=== PATIENT | female | born 1930 | race Caucasian/White ===

== ENCOUNTER 2017-02-18 10:19 | Outpatient (CLI) | payer MEDICARE, BC | END 2017-02-18 10:20 | disposition home or self-care (01) | DX: M85.88 Other specified disorders of bone density and structure, other site (principal) ==

== ENCOUNTER 2017-03-30 10:06 | Outpatient (CLI) | payer MEDICARE, BC | END 2017-03-30 10:07 | disposition critical access hospital (66) | LOC: EMS 10:06 | PROVIDERS: ATTEND Surgery | DX: R55 Syncope and collapse (principal) | CPT/HCPCS: A0425; A0427 ==

== ENCOUNTER 2017-03-30 10:25 | Emergency (ER) | payer MEDICARE, BC ==
[2017-03-30] MEDS ORDERED: LIDOCAINE PATCH 5% TOP ONE (10:48)
[2017-03-30] MEDS: LIDOCAINE PATCH 5% TOP STA (10:55)
--- NOTE | 2017-03-30 10:59 | ED Physician Documentation ---
History of Present Illness - Stated complaint Stated Complaint: SOA - Chief complaint Chief Complaint: Neuro - Additonal information Additional information: hx from pt 86 female to ER for near syncope while sitting at [employer] she did not eat this AM and thinks that is contributing has had mm tension in her neck - but no CP dyspnea etc no recent illness - no fever cough NVD urinary sx this has happened to her before Review of Systems Constitutional: denies: Fever, Chills Ears: denies: Ear pain Throat: denies: Sore throat Cardiac: denies: Chest pain / pressure, Palpitations Respiratory: denies: Dyspnea, Cough GI: denies: Abdominal Pain, Nausea, Vomiting Musculoskeletal: reports: Neck pain (MM right side trap region) Neurologic: denies: Headache Immunocompromised: denies: Immunocompromised PD PAST MEDICAL HISTORY - Present Medications Home Medications: Ambulatory Orders Medication Instructions Recorded Confirmed Lisinopril [Lisinopril] 5 mg PO DAILY 03/30/17 03/30/17 Ubidecarenone/Vitamin E Mixed 1 cap PO DAILY 03/30/17 03/30/17 [Ilz27-Slm E 200 mg-20 Unit Sfg] - Allergies Allergies/Adverse Reactions: Allergies Allergy/AdvReac Type Severity Reaction Status Date / Time aspirin Allergy Unknown Verified 03/30/17 10:43 atenolol Allergy Unknown Verified 03/30/17 10:43 cetirizine Allergy Unknown Verified 03/30/17 10:43 egg Allergy Unknown Verified 03/30/17 10:43 ginkgo biloba Allergy Unknown Verified 03/30/17 10:43 hydrochlorothiazide Allergy Unknown Verified 03/30/17 10:43 levothyroxine sodium Allergy Unknown Verified 03/30/17 10:43 [From Levothroid] losartan Allergy Unknown Verified 03/30/17 10:43 niacin Allergy Unknown Verified 03/30/17 10:43 Penicillins Allergy Unknown Verified 03/30/17 10:43 Cyrszsb-Ulc-Ydi Reductase Allergy Unknown Verified 03/30/17 10:43 Inhibitor Results - Vitals Vitals: Vital Signs - 24 hr 03/30/17 10:30 Temperature 36.4 C L Heart Rate 82 Respiratory 14 Rate Blood Pressure 158/66 H O2 Saturation 98 Oxygen O2 Source Room air - EKG (time done) 1046 Rate: Rate (enter#) (82) Rhythm: NSR [place]: Normal Intervals: Normal MT QRS: Normal Ischemia: Normal ST segments - Labs Labs: Laboratory Tests 03/30/17 03/30/17 03/30/17 11:25 11:25 11:25 WBC 10.7 RBC 3.92 L Hgb 11.6 L Hct 34.0 L MCV 86.8 MCH 29.6 MCHC 34.1 RDW 13.7 Plt Count 256 MPV 7.4 L Neut # 8.0 H Lymph # 1.4 L [place] # 1.1 H Eos # 0.2 Baso # 0.1 Absolute Nucleated RBC 0.00 Nucleated RBCs 0.0 Sodium 133 L Potassium 4.2 Chloride 99 L Carbon Dioxide 25 Anion Gap 9.0 BUN 20 Creatinine 1.1 H Estimated GFR (MDRD) 47 L Glucose 113 H Calcium 9.1 Troponin I < 0.04 Departure - Departure Disposition: 01 Home, Self Care Clinical Impression: Near syncope Condition: Good Instructions: ED Near Syncope Unkn Follow-Up: Mac Cisse DO [Primary Care Provider] - Comments: Your labs were fine except for mild anemia Your EKG and heart monitor were fine I suspect you felt faint at [facility] because you did not eat I think it is safe for you to go home. Please eat a god lunch and rest when you get home Please follow up with your PMD about your anemia Also you blood pressure was high today - please follow up with your PMD about that too
[2017-03-30 11:30] LABS: BASOPHILS # (AUTO) 0.1 10^3/uL (0.0-0.1); BASOPHILS % (AUTO) 0.6 %; EOSINOPHILS # (AUTO) 0.2 10^3/uL (0.0-0.7); EOSINOPHILS % (AUTO) 1.7 %; HGB - HEMOGLOBIN 11.6 g/dL (12.0-16.0); LYMPHOCYTES # (AUTO) 1.4 10^3/uL (1.5-3.5); LYMPHOCYTES % (AUTO) 13.3 %; MEAN CORPUSCULAR HEMOGLOBIN 29.6 pg (27.0-31.0); MEAN CORPUSCULAR HGB CONC 34.1 g/dL (32.0-36.0); MEAN CORPUSCULAR VOLUME 86.8 fL (81.0-99.0); MEAN PLATELET VOLUME 7.4 fL (7.9-10.8); MONOCYTES # (AUTO) 1.1 10^3/uL (0.0-1.0); MONOCYTES % (AUTO) 10.2 %; NEUTROPHILS % (AUTO) 74.2 %; RED BLOOD COUNT 3.92 10^6/uL (4.20-5.40); RED CELL DISTRIBUTION WIDTH 13.7 % (12.0-15.0); UNCORRECTED WHITE BLOOD COUNT 10.7 x10^3/uL; WHITE BLOOD COUNT 10.7 x10^3/uL (4.8-10.8)
[2017-03-30 11:43] LABS: CALCIUM 9.1 mg/dL (8.5-10.3); CREATININE 1.1 mg/dL (0.4-1.0); POTASSIUM 4.2 mmol/L (3.5-5.0)
[2017-03-30 12:22] VITALS: BP 127/59
== END 2017-03-30 12:25 | disposition home or self-care (01) ==
LOC: EDUNIT# → ED 10:25
DX: R55 Syncope and collapse (principal)
CPT/HCPCS: 36415; 80048; 84484; 85025; 93005; 93010; 99283; 99284

== ENCOUNTER 2017-12-28 10:45 | Emergency (ER) | payer MEDICARE, BC ==
[2017-12-28 11:23] LABS: BASOPHILS # (AUTO) 0.1 10^3/uL (0.0-0.1); BASOPHILS % (AUTO) 1.1 %; EOSINOPHILS # (AUTO) 0.4 10^3/uL (0.0-0.7); EOSINOPHILS % (AUTO) 5.1 %; HGB - HEMOGLOBIN 12.8 g/dL (12.0-16.0); LYMPHOCYTES # (AUTO) 2.6 10^3/uL (1.5-3.5); LYMPHOCYTES % (AUTO) 29.8 %; MEAN CORPUSCULAR HEMOGLOBIN 29.1 pg (27.0-31.0); MEAN CORPUSCULAR VOLUME 88.1 fL (81.0-99.0); MEAN PLATELET VOLUME 7.4 fL (7.9-10.8); MONOCYTES # (AUTO) 0.7 10^3/uL (0.0-1.0); MONOCYTES % (AUTO) 7.9 %; NEUTROPHILS # (AUTO) 4.9 10^3/uL (1.5-6.6); NEUTROPHILS % (AUTO) 56.1 %; PLT - PLATELET COUNT 310 10^3/uL (130-450); RED CELL DISTRIBUTION WIDTH 13.6 % (12.0-15.0); WHITE BLOOD COUNT 8.8 x10^3/uL (4.8-10.8)
[2017-12-28 11:31] LABS: ALBUMIN 4.2 g/dL (3.2-5.5); ALBUMIN/GLOBULIN RATIO 0.9 (1.0-2.2); BILIRUBIN,TOTAL 0.6 mg/dL (0.2-1.0); CALCIUM 9.8 mg/dL (8.5-10.3); CREATININE 1.3 mg/dL (0.4-1.0); TOTAL PROTEIN 8.7 g/dL (6.7-8.2)
[2017-12-28] MEDS ORDERED: SODIUM CHLORIDE 0.9% 1,000 ML IV ONE (11:49)
--- NOTE | 2017-12-28 11:51 | ED Physician Documentation ---
History of Present Illness - Stated complaint Stated Complaint: WEAKNESS - Chief complaint Chief Complaint: Cardiac - History obtained from History obtained from: Patient, Family - History of Present Illness Timing: Today - Additonal information Additional information: 87-year-old female was in her regular state of health when she went to [facility] this morning. She was not ill yesterday and today she feels that her legs are weak and she has near syncope. She has a history of aortic stenosis and she thinks that she is not well hydrated. Review of Systems Constitutional: denies: Fever, Chills Eyes: denies: Decreased vision Ears: denies: Ear pain Nose: denies: Congestion Throat: denies: Sore throat Cardiac: reports: Palpitations. denies: Chest pain / pressure Respiratory: reports: Dyspnea, Cough GI: denies: Abdominal Pain, Nausea, Vomiting : denies: Dysuria, Frequency Skin: denies: Rash Musculoskeletal: denies: Neck pain, Back pain, Extremity pain Neurologic: reports: Generalized weakness. denies: Focal weakness, Numbness PD PAST MEDICAL HISTORY - Past Medical History Past Medical History: Yes Cardiovascular: Hypertension Other Past Medical History: Aortic Stenosis - Past Surgical History General: Gastric surgery HEENT: Tonsil/Adenoidectomy - Present Medications Home Medications: Ambulatory Orders Medication Instructions Recorded Confirmed Lisinopril [Lisinopril] 5 mg PO DAILY 03/30/17 03/30/17 Ubidecarenone/Vitamin E Mixed 1 cap PO DAILY 03/30/17 03/30/17 [Wuj01-Eca E 200 mg-20 Unit Sfg] Ciprofloxacin HCl [Cipro] 500 mg PO BID #14 tablet 12/28/17 Flaxseed/Evening Prim/Bilberry 12/28/17 [[employer]-Precip Softgel] - Allergies Allergies/Adverse Reactions: Allergies Allergy/AdvReac Type Severity Reaction Status Date / Time aspirin Allergy Unknown Verified 03/30/17 10:43 atenolol Allergy Unknown Verified 03/30/17 10:43 cetirizine Allergy Unknown Verified 03/30/17 10:43 diphenhydramine Allergy Unknown Verified 12/28/17 10:54 [From Benadryl] egg Allergy Unknown Verified 03/30/17 10:43 ginkgo biloba Allergy Unknown Verified 03/30/17 10:43 hydrochlorothiazide Allergy Unknown Verified 03/30/17 10:43 levothyroxine sodium Allergy Unknown Verified 03/30/17 10:43 [From Levothroid] losartan Allergy Unknown Verified 03/30/17 10:43 niacin Allergy Unknown Verified 03/30/17 10:43 Penicillins Allergy Unknown Verified 03/30/17 10:43 Mjomuaf-Bpz-Itb Reductase Allergy Unknown Verified 03/30/17 10:43 Inhibitor - Social History Does the pt smoke?: No Smoking Status: Never smoker Does the pt drink ETOH?: No Does the pt have substance abuse?: No - Immunizations Immunizations are current?: Yes Immunizations: TDAP >10years/unknown - POLST Patient has POLST: No PD ED PE NORMAL - Vitals Vital signs reviewed: Yes (hypertensive ) - General General: Alert and oriented X 3, No acute distress, Well developed/nourished - HEENT HEENT: Atraumatic, PERRL, EOMI - Neck Neck: Supple, no meningeal sign, No bony TTP - Cardiac Cardiac: RRR, Other (2/6 holosystolic murmer at LSB ) - Respiratory Respiratory: No respiratory distress, Clear bilaterally - Abdomen Abdomen: Soft, Non tender - Back Back: No CVA TTP, No spinal TTP - Derm Derm: Normal color, No rash - Extremities Extremities: No deformity, No edema - Neuro Neuro: Alert and oriented X 3, No motor deficit, No sensory deficit, Normal speech Eye Opening: Spontaneous Motor: Obeys Commands Verbal: Oriented GCS Score: 15 - Psych Psych: Normal mood, Normal affect Results - Vitals Vitals: Vital Signs - 24 hr 12/28/17 12/28/17 12/28/17 10:49 10:50 11:00 Temperature 36.2 C L Heart Rate 90 70 69 Respiratory 16 16 Rate Blood Pressure 193/79 H 193/79 H 153/71 H O2 Saturation 99 99 12/28/17 12:43 Temperature Heart Rate 72 Respiratory 18 Rate Blood Pressure 148/61 H O2 Saturation 99 Oxygen O2 Source Room air - EKG (time done) 1057 Rate: Rate (enter#) (86) Rhythm: NSR, LAE QRS: LVH Compare to prior EKG: Changed from prior EKG (03-30-17 LVH has developed ) Computer interpretation: Agree with computer - Labs Labs: Laboratory Tests 12/28/17 12/28/17 12/28/17 11:00 11:00 11:00 WBC 8.8 RBC 4.40 Hgb 12.8 Hct 38.8 MCV 88.1 MCH 29.1 MCHC 33.0 RDW 13.6 Plt Count 310 MPV 7.4 L Neut # 4.9 Lymph # 2.6 [place] # 0.7 Eos # 0.4 Baso # 0.1 Absolute Nucleated RBC 0.00 Nucleated RBC % 0.0 Sodium 132 L Potassium 4.1 Chloride 97 L Carbon Dioxide 23 Anion Gap 12.0 BUN 21 H Creatinine 1.3 H Estimated GFR (MDRD) 39 L Glucose 100 Calcium 9.8 Total Bilirubin 0.6 AST 21 ALT 12 Alkaline Phosphatase 70 Troponin I < 0.04 Total Protein 8.7 H Albumin 4.2 Globulin 4.5 H Albumin/Globulin Ratio 0.9 L Lipase 32 Urine Color Urine Clarity Urine pH Ur Specific [place] Urine Protein Urine Glucose (UA) Urine Ketones Urine Occult Blood Urine Nitrite Urine Bilirubin Urine Urobilinogen Ur Leukocyte Esterase Urine RBC Urine WBC Ur Squamous Epith Cells Urine Bacteria Ur Microscopic Review Urine Culture Comments 12/28/17 12:28 WBC RBC Hgb Hct MCV MCH MCHC RDW Plt Count MPV Neut # Lymph # [place] # Eos # Baso # Absolute Nucleated RBC Nucleated RBC % Sodium Potassium Chloride Carbon Dioxide Anion Gap BUN Creatinine Estimated GFR (MDRD) Glucose Calcium Total Bilirubin AST ALT Alkaline Phosphatase Troponin I Total Protein Albumin Globulin Albumin/Globulin Ratio Lipase Urine Color YELLOW Urine Clarity CLEAR Urine pH 6.0 Ur Specific [place] 1.010 Urine Protein NEGATIVE Urine Glucose (UA) NEGATIVE Urine Ketones NEGATIVE Urine Occult Blood TRACE-INTA Urine Nitrite NEGATIVE Urine Bilirubin NEGATIVE Urine Urobilinogen 0.2 (NORMAL) Ur Leukocyte Esterase TRACE H Urine RBC 0-5 Urine WBC 6-10 H Ur Squamous Epith Cells MOD Squamous H Urine Bacteria Rare Ur Microscopic Review INDICATED Urine Culture Comments NOT INDICATED - Rads (name of study) 2 view chest Radiology: Prelim report reviewed (Impression: No convincing acute cardiopulmonary abnormality. Bilateral interstitial abnormality suggesting chronic lung disease. Mitral annular calcification.), EMP read indepedently, See rad report Procedures - IVC sono (time) 1145 Bedside IVC sono: IVC measures (cm) (1.02), IVC collapsed c insp (cm) (complete) , Dehydration PD MEDICAL DECISION MAKING - ED course Complexity details: reviewed results, re-evaluated patient, considered differential, d/w patient, d/w family ED course: 87-year-old female attending [facility] this morning feeling not well is found to be mildly dehydrated and she does have urinary tract infection. She is administered a liter of saline and a gram of Rocephin intravenously. Departure - Departure Disposition: 01 Home, Self Care Clinical Impression: Dehydration Urinary tract infection Qualifiers: Urinary tract infection type: acute cystitis Hematuria presence: without hematuria Qualified Code(s): N30.00 - Acute cystitis without hematuria Condition: Stable Instructions: ED UTI Cystitis Female, ED Dehydration Follow-Up: Mac Cisse DO [Primary Care Provider] - Prescriptions: Ciprofloxacin HCl [Cipro] 500 mg PO BID #14 tablet
--- NOTE | 2017-12-28 11:52 | XRAY Report ---
EXAM: CHEST RADIOGRAPHY EXAM DATE: 12/28/2017 11:32 AM. CLINICAL HISTORY: Palpitations, sob. COMPARISON: 07/15/2009. TECHNIQUE: 2 views. FINDINGS: Lungs/Pleura: Bilateral interstitial abnormality suggesting chronic lung disease. This is overall sim ilar to prior. No convincing focal pulmonary opacity. There is mitral annular calcification. No convi ncing pleural effusion or pneumothorax. Mediastinum: Heart size is normal. Mildly tortuous aorta. Other: None. IMPRESSION: No convincing acute cardiopulmonary abnormality. Bilateral interstitial abnormality sugge sting chronic lung disease. Mitral annular calcification. [facility] Referring Provider Line: [phone] SITE ID: [id number]
[2017-12-28 12:45] LABS: BILIRUBIN,URINE NEGATIVE (NEGATIVE); GLUCOSE, URINE (UA) NEGATIVE (NEGATIVE); KETONES,URINE (UA) NEGATIVE (NEGATIVE); LEUKOCYTE ESTERASE, URINE TRACE (NEGATIVE); NITRITE,URINE NEGATIVE (NEGATIVE); OCCULT BLOOD,URINE TRACE-INTA (NEGATIVE); PROTEIN,URINE NEGATIVE (NEGATIVE); UROBILINOGEN,URINE 0.2 (NORMAL) E.U./dL (NORMAL)
[2017-12-28 12:46] LABS: CLARITY,URINE CLEAR (CLEAR)
[2017-12-28 12:53] LABS: BACTERIA,URINE Rare /HPF (None Seen); RBC,URINE 0-5 /HPF (0-5); SQUAMOUS EPITHELIAL CELL,UR MOD Squamous (<= Few)
[2017-12-28] MEDS ORDERED: cefTRIAXone 1 GM in SODIUM CHLORIDE 0.9% MINIBAG 100 ML IV STA (13:02)
[2017-12-28 13:22] VITALS: BP 140/59
== END 2017-12-28 14:17 | disposition home or self-care (01) ==
LOC: ED 10:45
DX: E86.0 Dehydration (principal); N30.00 Acute cystitis without hematuria; I10 Essential (primary) hypertension; I35.0 Nonrheumatic aortic (valve) stenosis; Z98.84 Bariatric surgery status
CPT/HCPCS: 36415; 71046; 80053; 81001; 81003; 83690; 84484; 85025; 87086; 93005; 96361; 96374; 99284

== ENCOUNTER 2018-02-22 13:14 | Emergency (ER) | payer MEDICARE, BC ==
[2018-02-22 14:02] LABS: BILIRUBIN,URINE NEGATIVE (NEGATIVE); GLUCOSE, URINE (UA) NEGATIVE (NEGATIVE); KETONES,URINE (UA) NEGATIVE (NEGATIVE); LEUKOCYTE ESTERASE, URINE TRACE (NEGATIVE); NITRITE,URINE NEGATIVE (NEGATIVE); OCCULT BLOOD,URINE TRACE-INTA (NEGATIVE); PH,URINE 5.5 PH (5.0-7.5); PROTEIN,URINE NEGATIVE (NEGATIVE); UROBILINOGEN,URINE 0.2 (NORMAL) E.U./dL (NORMAL)
[2018-02-22 14:04] LABS: CLARITY,URINE CLEAR (CLEAR)
[2018-02-22 14:15] LABS: BACTERIA,URINE Rare /HPF (None Seen); RBC,URINE None Seen /HPF (0-5); SQUAMOUS EPITHELIAL CELL,UR FEW Squamous (<= Few)
[2018-02-22] MEDS ORDERED: FLUCONAZOLE 100 MG TABLET PO STA (14:15)
--- NOTE | 2018-02-22 14:18 | ED Physician Documentation ---
PD HPI FEMALE - Stated complaint Stated Complaint: FEM - Chief complaint Chief Complaint: UTI - History obtained from History obtained from: Patient, Family - History of Present Illness Timing - onset: Today Timing - duration: Days (1) Timing - details: Abrupt onset Associated symptoms: Vaginal discharge (odorous and feeling of itching vaginally.), Dysuria. No: Fever, Vaginal bleeding, Urinary frequency, Hematuria Similar symptoms before: Diagnosis (had dysuria recently and Rx with abx for it. ) Review of Systems Constitutional: denies: Fever, Chills GI: denies: Nausea, Vomiting Skin: denies: Rash PD PAST MEDICAL HISTORY - Past Medical History Past Medical History: Yes Cardiovascular: Hypertension, High cholesterol - Past Surgical History Past Surgical History: Yes General: Gastric surgery HEENT: Tonsil/Adenoidectomy - Present Medications Home Medications: Ambulatory Orders Medication Instructions Recorded Confirmed Lisinopril [Lisinopril] 5 mg PO DAILY 03/30/17 02/22/18 Ubidecarenone/Vitamin E Mixed 1 cap PO DAILY 03/30/17 02/22/18 [Jcn65-Lvv E 200 mg-20 Unit Sfg] Fluconazole [Diflucan] 150 mg PO ONCE #1 tablet 02/22/18 - Allergies Allergies/Adverse Reactions: Allergies Allergy/AdvReac Type Severity Reaction Status Date / Time aspirin Allergy Unknown Verified 02/22/18 13:33 atenolol Allergy Unknown Verified 02/22/18 13:33 cetirizine Allergy Unknown Verified 02/22/18 13:33 diphenhydramine Allergy Unknown Verified 02/22/18 13:33 [From Benadryl] egg Allergy Unknown Verified 02/22/18 13:33 ginkgo biloba Allergy Unknown Verified 02/22/18 13:33 hydrochlorothiazide Allergy Unknown Verified 02/22/18 13:33 levothyroxine sodium Allergy Unknown Verified 02/22/18 13:33 [From Levothroid] losartan Allergy Unknown Verified 02/22/18 13:33 niacin Allergy Unknown Verified 02/22/18 13:33 Penicillins Allergy Unknown Verified 02/22/18 13:33 Llfparh-Yxu-Vhu Reductase Allergy Unknown Verified 02/22/18 13:33 Inhibitor ciprofloxacin [From Cipro] AdvReac Unknown Verified 02/22/18 13:33 - Social History Does the pt smoke?: No Smoking Status: Former smoker Does the pt drink ETOH?: Yes ETOH Use: Wine Does the pt have substance abuse?: No - Immunizations Immunizations are current?: Yes Immunizations: TDAP >10years/unknown - POLST Patient has POLST: No PD ED PE NORMAL - Vitals Vital signs reviewed: Yes - General General: Alert and oriented X 3, No acute distress, Well developed/nourished - Female Female : Deferred - Rectal Rectal: Deferred - Back Back: No CVA TTP - Derm Derm: Normal color, Warm and dry Results - Vitals Vitals: Oxygen O2 Source Room air - Labs Labs: Microbiology 02/22/18 13:51 Urine Culture - Preliminary Urine,Clean Catch No growth Laboratory Tests 02/22/18 13:51 Urine Color YELLOW Urine Clarity CLEAR Urine pH 5.5 Ur Specific [place] <=1.005 Urine Protein NEGATIVE Urine Glucose (UA) NEGATIVE Urine Ketones NEGATIVE Urine Occult Blood TRACE-INTA Urine Nitrite NEGATIVE Urine Bilirubin NEGATIVE Urine Urobilinogen 0.2 (NORMAL) Ur Leukocyte Esterase TRACE H Urine RBC None Seen Urine WBC 4-5 Ur Squamous Epith Cells FEW Squamous Urine Bacteria Rare Ur Microscopic Review INDICATED Urine Culture Comments INDICATED PD MEDICAL DECISION MAKING - ED course Complexity details: considered differential (she complains of dysuria and also vaginal itching. UA is normal. Consider vaginitis and likely yeast. Discussed with the patient and shared decision to treat with antifungal and would need pelvic if not improved with that. ), d/w patient Departure - Departure Disposition: 01 Home, Self Care Clinical Impression: Yeast vaginitis Condition: Stable Record reviewed to determine appropriate education?: Yes Instructions: ED Vaginal Infec Fungal Sunitha Follow-Up: Mac Cisse DO [Primary Care Provider] - Prescriptions: Fluconazole [Diflucan] 150 mg PO ONCE #1 tablet Comments: Your urine test looks normal. Your symptoms sound like vaginal yeast infection. This might get treated well enough with just a single dose antifungal here. If your symptoms do not seem completely resolved over 2-3 days , then take a second dose 3 days from now. Recheck if still not improved after that time. Discharge Date/Time: 02/22/18 14:29
[2018-02-22 14:30] VITALS: BP 161/73
== END 2018-02-22 14:29 | disposition home or self-care (01) ==
LOC: ED 13:14
DX: B37.3 Candidiasis of vulva and vagina (principal); I10 Essential (primary) hypertension; E78.00 Pure hypercholesterolemia, unspecified; Z98.84 Bariatric surgery status; Z87.891 Personal history of nicotine dependence
CPT/HCPCS: 81001; 87086; 99283; A9270; 81003

== ENCOUNTER 2018-03-11 09:12 | Outpatient (CLI) | payer MEDICARE, BC ==
[2018-03-11 13:46] LABS: BASOPHILS # (AUTO) 0.1 10^3/uL (0.0-0.1); BASOPHILS % (AUTO) 1.1 %; EOSINOPHILS # (AUTO) 0.2 10^3/uL (0.0-0.7); EOSINOPHILS % (AUTO) 3.1 %; HGB - HEMOGLOBIN 11.5 g/dL (12.0-16.0); LYMPHOCYTES # (AUTO) 1.5 10^3/uL (1.5-3.5); LYMPHOCYTES % (AUTO) 26.1 %; MEAN CORPUSCULAR HEMOGLOBIN 29.3 pg (27.0-31.0); MEAN CORPUSCULAR HGB CONC 33.5 g/dL (32.0-36.0); MEAN CORPUSCULAR VOLUME 87.3 fL (81.0-99.0); MEAN PLATELET VOLUME 7.4 fL (7.9-10.8); MONOCYTES # (AUTO) 0.5 10^3/uL (0.0-1.0); MONOCYTES % (AUTO) 9.1 %; NEUTROPHILS # (AUTO) 3.5 10^3/uL (1.5-6.6); NEUTROPHILS % (AUTO) 60.6 %; PLT - PLATELET COUNT 332 10^3/uL (130-450); RED BLOOD COUNT 3.93 10^6/uL (4.20-5.40); RED CELL DISTRIBUTION WIDTH 14.1 % (12.0-15.0); WHITE BLOOD COUNT 5.8 x10^3/uL (4.8-10.8)
[2018-03-11 14:05] LABS: THYROID STIMULATING HORMONE 8.82 uIU/mL (0.34-5.60)
[2018-03-11 14:07] LABS: FREE T4 (FREE THYROXINE) 0.81 ng/dL (0.58-1.64)
[2018-03-11 14:10] LABS: HB2 TOTAL 12.5 g/dL; HEMOGLOBIN A1C 0.44 g/dL; HEMOGLOBIN A1C % 5.4 % (4.6-6.2)
[2018-03-11 14:11] LABS: ALBUMIN 3.9 g/dL (3.2-5.5); ALBUMIN/GLOBULIN RATIO 1.1 (1.0-2.2); ALKALINE PHOSPHATASE 54 IU/L (42-121); ALT ALANINE AMINOTRANSFERASE 13 IU/L (10-60); AST ASPARTATE AMINOTRANSFERASE 22 IU/L (10-42); BILIRUBIN,TOTAL 0.4 mg/dL (0.2-1.0); BUN - BLOOD UREA NITROGEN 24 mg/dL (6-20); CALCIUM 9.1 mg/dL (8.5-10.3); CARBON DIOXIDE - CO2 23 mmol/L (21-32); CHLORIDE 98 mmol/L (101-111); CHOL/HDL RATIO 5.4 (<4.4); CHOLESTEROL 281 mg/dL; CREATININE 1.1 mg/dL (0.4-1.0); GFR - MDRD 47 (>89); GLUCOSE 99 mg/dL (70-100); HDL CHOLESTEROL 52 mg/dL; LDL CHOLESTEROL,CALCULATED 191 mg/dL; LDL/HDL RATIO 3.7 (<4.4); SODIUM 128 mmol/L (135-145); TOTAL PROTEIN 7.5 g/dL (6.7-8.2); VLDL CHOLESTEROL 38 mg/dL
== END 2018-03-11 09:13 | disposition home or self-care (01) ==
LOC: LAB.WCP 09:12
PROVIDERS: ATTEND Family Medicine
DX: D64.9 Anemia, unspecified (principal); E03.9 Hypothyroidism, unspecified; R73.01 Impaired fasting glucose; E78.5 Hyperlipidemia, unspecified; I10 Essential (primary) hypertension
CPT/HCPCS: 36415; 80053; 80061; 83036; 83721; 84439; 84443; 85025

== ENCOUNTER 2018-11-22 09:52 | Outpatient (CLI) | payer MEDICARE, BC | END 2018-11-22 09:53 | disposition critical access hospital (66) | LOC: EMS 09:52 | PROVIDERS: ATTEND Surgery | DX: R51 Headache (principal); S01.81XA Laceration without foreign body of other part of head, initial encounter; W19.XXXA Unspecified fall, initial encounter; Y92.008 Other place in unspecified non-institutional (private) residence as the place of occurrence of the external cause | CPT/HCPCS: A0425; A0427 ==

== ENCOUNTER 2018-11-22 10:03 | Observation (INO) | payer MEDICARE, BC ==
[2018-11-22] MEDS ORDERED: ACETAMINOPHEN 1,000 MG/100 ML 100 ML IV STA (10:11)
--- NOTE | 2018-11-22 10:17 | ED Physician Documentation ---
History of Present Illness - Stated complaint Stated Complaint: SYNCOPE - Additonal information Additional information: hx from pt and EMS pt fell outside her house and hit her L advent LOC she does not recall the event per EMS believed to be slip and fall as the walklway was ice and there is a skid [place] where she likely slipped in any case she awome and was able to get back insider on her own called her friends to let them know [facility] they called [facility] EMS found pt hypotensive SBP 60 and regina HR 50s this improved spont without intervention from EMS pt has a terrible [place] but denies CP palp abd pain NVD thinks she was in good health prior no recent med changes no blood thinenrs Review of Systems Constitutional: denies: Fever Nose: denies: Epistaxis Cardiac: denies: Chest pain / pressure, Palpitations Respiratory: denies: Dyspnea, Cough GI: denies: Abdominal Pain, Nausea, Vomiting, Diarrhea Musculoskeletal: denies: Neck pain (but will stay in collar for imaging given high risk injury and age), Extremity pain, Joint pain Neurologic: reports: Syncope, Headache, Head injury. denies: Focal weakness, Numbness Endocrine: denies: Easy bruising / bleeding Immunocompromised: denies: Immunocompromised PD PAST MEDICAL HISTORY - Past Medical History Cardiovascular: Hypertension, High cholesterol - Past Surgical History Past Surgical History: Yes General: Gastric surgery HEENT: Tonsil/Adenoidectomy - Present Medications Home Medications: Ambulatory Orders Medication Instructions Recorded Confirmed Lisinopril 10 mg PO DAILY 03/30/17 11/22/18 [place] DAILY 11/22/18 Multivit-Min/Iron Fum/Folic AC 1 tab PO DAILY 11/22/18 11/22/18 [Gmfxo-Honfsgl-Xvuzwlqc Tablet] Ubidecarenone [Co Q10] 200 mg PO DAILY 11/22/18 11/22/18 - Allergies Allergies/Adverse Reactions: Allergies Allergy/AdvReac Type Severity Reaction Status Date / Time aspirin Allergy Unknown Verified 02/22/18 13:33 atenolol Allergy Unknown Verified 02/22/18 13:33 cetirizine Allergy Unknown Verified 02/22/18 13:33 diphenhydramine Allergy Unknown Verified 02/22/18 13:33 [From Benadryl] egg Allergy Unknown Verified 02/22/18 13:33 ginkgo biloba Allergy Unknown Verified 02/22/18 13:33 hydrochlorothiazide Allergy Unknown Verified 02/22/18 13:33 levothyroxine sodium Allergy Unknown Verified 02/22/18 13:33 [From Levothroid] losartan Allergy Unknown Verified 02/22/18 13:33 niacin Allergy Unknown Verified 02/22/18 13:33 Penicillins Allergy Unknown Verified 02/22/18 13:33 Wtxkhcj-Wzq-Ssy Reductase Allergy Unknown Verified 02/22/18 13:33 Inhibitor ciprofloxacin [From Cipro] AdvReac Unknown Verified 02/22/18 13:33 spider bites AdvReac Unknown Uncoded 11/22/18 11:06 - Social History Does the pt smoke?: No Smoking Status: Former smoker Does the pt drink ETOH?: Yes Does the pt have substance abuse?: No - Immunizations Immunizations are current?: Yes Immunizations: TDAP >10years/unknown - POLST Patient has POLST: No PD ED PE NORMAL - Vitals Vital signs reviewed: Yes - General General: Alert and oriented X 3 - HEENT HEENT: PERRL, Ears normal (no post auricular or periorbital ecchymosis, large L temporal hematoma with small lac) - Neck Neck: No bony TTP (remains collared for imaging as high risk injury) - Cardiac Cardiac: RRR - Respiratory Respiratory: No respiratory distress, Clear bilaterally - Abdomen Abdomen: Non tender - Derm Derm: Normal color - Extremities Extremities: Other (pelvis stable, no ext TTP or deformity) - Neuro Neuro: Alert and oriented X 3, gambling broker 2-12 intact, No motor deficit, No sensory deficit, Normal speech Eye Opening: Spontaneous Motor: Obeys Commands Verbal: Oriented GCS Score: 15 Results - Vitals Vitals: Vital Signs - 24 hr 11/22/18 11/22/18 10:04 11:02 Temperature 35.7 C L Heart Rate 78 78 Respiratory 20 16 Rate Blood Pressure 163/71 H 151/68 H O2 Saturation 99 99 Oxygen O2 Source Room air - EKG (time done) 1006 Rate: Rate (enter#) Rhythm: NSR Intervals: Prolonged [place]. No: Prolonged QT (borderline) Ischemia: Normal ST segments - Labs Labs: Laboratory Tests 11/22/18 11/22/18 11/22/18 10:30 10:30 10:30 WBC 8.7 RBC 3.81 L Hgb 11.2 L Hct 33.6 L MCV 88.4 MCH 29.4 MCHC 33.3 RDW 13.7 Plt Count 301 MPV 6.7 L Neut # (Auto) 6.3 Lymph # (Auto) 1.6 [place] # (Auto) 0.6 Eos # (Auto) 0.2 Baso # (Auto) 0.1 Absolute Nucleated RBC 0.00 Nucleated RBC % 0.0 Sodium 127 L Potassium 4.1 Chloride 95 L Carbon Dioxide 22 Anion Gap 10.0 BUN 28 H Creatinine 1.3 H Estimated GFR (MDRD) 39 L Glucose 123 H Calcium 8.8 Troponin I < 0.04 - Rads (name of study) CTH Radiology: See rad report (ST hematoma L frotnal, no acute intracranial abn, AFL sinuses could be sinusitis) CT CS Radiology: See rad report (no fx, facet degen) Procedures - Laceration (location) L FH Length in cm: 1 Wound type: Linear Neurovascular status: Sensory intact, Motor intact Anesthesia: LET Wound Preparation: Irrigated copiously NS (nurse) Skin layer closure: Dermabond Other: Patient tolerated well, Tetanus booster given Complexity: Simple PD MEDICAL DECISION MAKING - ED course ED course: thankfully no acute head neck injury EKG NSR labs notable for low Na anemia and renal insuff neither new but both slightly worse than prior likely pt had slip and fall but it was unwitnessed and medics report pt to be hypotensive and profoundly regina upon their arrival feel she merit observation for tele and echo to be certain that she did not have syncope causing fall rather than other way around called hospitalist at 1235 Departure - Departure Disposition: ED Place in Observation Clinical Impression: Bradycardia, Hyponatremia, Renal insufficiency Syncope Qualifiers: Syncope type: unspecified Qualified Code(s): R55 - Syncope and collapse Fall Qualifiers: Encounter type: initial encounter Qualified Code(s): W19.XXXA - Unspecified fall, initial encounter Head injury Qualifiers: Encounter type: initial encounter Qualified Code(s): S09.90XA - Unspecified injury of head, initial encounter Hypotension Qualifiers: Hypotension type: unspecified hypotension type Qualified Code(s): I95.9 - Hypotension, unspecified Anemia Qualifiers: Anemia type: unspecified type Qualified Code(s): D64.9 - Anemia, unspecified Discharge Date/Time: 11/22/18 13:50
[2018-11-22 10:39] LABS: BASOPHILS # (AUTO) 0.1 10^3/uL (0.0-0.1); BASOPHILS % (AUTO) 0.8 %; EOSINOPHILS # (AUTO) 0.2 10^3/uL (0.0-0.7); EOSINOPHILS % (AUTO) 1.9 %; HGB - HEMOGLOBIN 11.2 g/dL (12.0-16.0); LYMPHOCYTES # (AUTO) 1.6 10^3/uL (1.5-3.5); LYMPHOCYTES % (AUTO) 18.6 %; MEAN CORPUSCULAR HEMOGLOBIN 29.4 pg (27.0-31.0); MEAN CORPUSCULAR HGB CONC 33.3 g/dL (32.0-36.0); MEAN CORPUSCULAR VOLUME 88.4 fL (81.0-99.0); MEAN PLATELET VOLUME 6.7 fL (7.9-10.8); MONOCYTES # (AUTO) 0.6 10^3/uL (0.0-1.0); MONOCYTES % (AUTO) 6.8 %; NEUTROPHILS # (AUTO) 6.3 10^3/uL (1.5-6.6); NEUTROPHILS % (AUTO) 71.9 %; PLT - PLATELET COUNT 301 10^3/uL (130-450); RED BLOOD COUNT 3.81 10^6/uL (4.20-5.40); RED CELL DISTRIBUTION WIDTH 13.7 % (12.0-15.0); WHITE BLOOD COUNT 8.7 x10^3/uL (4.8-10.8)
[2018-11-22 10:48] LABS: CALCIUM 8.8 mg/dL (8.5-10.3); CREATININE 1.3 mg/dL (0.4-1.0)
--- NOTE | 2018-11-22 11:43 | CT Report ---
Reason: fall L jainism hematoma LOC Procedure Date: 11/22/2018 Accession Number: [id number] / [id number] Procedure: CT - Head W/O CPT Code: FULL RESULT: EXAM: CT HEAD EXAM DATE: 11/22/2018 10:51 AM. CLINICAL HISTORY: Fall, loss of consciousness, left jainism hematoma. COMPARISON: None. TECHNIQUE: Multiaxial CT images were obtained from the foramen magnum to the vertex. Reformats: Sagittal and coronal. IV contrast: None. In accordance with CT protocol optimization, one or more of the following dose reduction techniques were utilized for this exam: automated exposure control, adjustment of mA and/or KV based on patient size, or use of iterative reconstructive technique. FINDINGS: Parenchyma: No intraparenchymal hemorrhage. No evidence of mass, midline shift, or CT findings of infarction. Krause-white differentiation is distinct. Extraaxial Spaces: Mild diffuse prominence, compatible with central volume loss. No subdural or epidural collections identified. Ventricles: Normal in size and position. Basal cisterns are patent. Sinuses and Orbits: There is an air-fluid level and debris in the right maxillary sinus. Air-fluid levels also demonstrated in bilateral sphenoid sinuses. Bilateral mastoid air cells are clear. Orbits are unremarkable. Bones: No calvarial fracture demonstrated. Other: There is soft tissue hematoma over the left frontal region. IMPRESSION: 1. Soft tissue hematoma over the left frontal region. 2. No acute intracranial abnormality. 3. Air-fluid levels in the right maxillary sinus and bilateral sphenoid sinuses, possibly representing acute sinusitis. [facility]
--- NOTE | 2018-11-22 11:48 | CT Report ---
Reason: fall [place] Procedure Date: 11/22/2018 Accession Number: [id number] / [id number] Procedure: CT - Cervical Spine W/O CPT Code: FULL RESULT: EXAM: CT CERVICAL SPINE WITHOUT CONTRAST DATE: 11/22/2018 10:51 AM. HISTORY: Ground-level fall with head injury. COMPARISONS: None. TECHNIQUE: Thin-section axial images were acquired of the cervical spine without contrast. Post-processing: Coronal and sagittal reformats. Other: None. In accordance with CT protocol optimization, one or more of the following dose reduction techniques were utilized for this exam: automated exposure control, adjustment of mA and/or KV based on patient size, or use of iterative reconstructive technique. FINDINGS: Alignment: No significant scoliosis or spondylolisthesis. Bones: No acute fracture. Interspace Levels/Facets: Disk heights are relatively well preserved throughout the cervical spine. However, there is multilevel facet degeneration with ankylosis of the right C3-C4 facet and partial ankylosis of the left C3-C4 facet. Severe right-sided facet degeneration present at C4-C5, C5-C6, and C6-C7. Severe left facet degeneration present at C2-C3 and C5-C6. Musculature: No atrophy. Other: No edema in the prevertebral space. There are air-fluid levels in the right maxillary and bilateral sphenoid sinuses, as described on head CT. There are coarse reticular-appearing opacities in the lung apices, suggestive of chronic parenchymal scarring rather than acute infiltrate. IMPRESSION: 1. No acute fracture or malalignment of the cervical spine. 2. Multilevel facet degeneration, as described above. RADIA
[2018-11-22] MEDS ORDERED: ONDANSETRON 4 MG/2 ML VIAL IVP PRN (12:51)
[2018-11-22] MEDS ORDERED: ONDANSETRON ODT 4 MG TABLET TL PRN (12:51)
[2018-11-22] MEDS ORDERED: oxyCODONE 5 MG TABLET PO PRN (12:51)
[2018-11-22] MEDS ORDERED: SODIUM CHLORIDE FLUSH 0.9% 10 ML SYRINGE IVP PRN (12:51)
[2018-11-22] MEDS ORDERED: SODIUM CHLORIDE 0.9% 1,000 ML IV SCH (13:00)
--- NOTE | 2018-11-22 13:01 | HISTORY & PHYSICAL EXAMINATION ---
Chief Complaint - Chief Complaint Chief Complaint: syncope History of Present Illness - Admitted From Admitted From:: Home/EMS/ER - [facility] History obtained from: Patient and Dr. Garcia Exam Limitations: none - History of Present Illness HPI Comment/Other: She is a very healthy elderly woman who still lives alone in her own home. She has known aortic stenosis. She has had an echocardiogram in 2004 in 2008 and most recently 2010 at [facility]. She has been seen by Dr. Aracely Dick at [facility] cardiology. She was seen in preoperative eval uation in 2010 before an umbilical hernia repair and cleared for surgery because of negative cardiovascular complaints. She was seen in the emergency room for syncope March 2017 where troponins were negative. She was sitting in [employer] when she had the near syncope. She attributed it to not eating and being stressed out with family situation. She was sent home. Troponins were negative then. She was by PCP 2 weeks later for fu of near syncope with no changes made to meds. She is independent, got up this morning to go to [employer]. Had breakfast and was dressed and ready to go. She walked out her front door. The next thing she knows she is waking up on a sidewalk in front of her house. She apparently passed out. She does not know how long she was out but it was only for a few minutes. She got back up and into her house to call her friends that she was not coming to [employer]. They called 911. She denies any antecedent symptoms of dizziness, nausea, diaphoresis. No chest pain, no palpitations. She really had no warning. She really does not think she tripped. Upon regaining co nsciousness there is no confusion. She just has a pretty bad headache. She was evaluated by Dr. Arredondo and blood pressure is 163/71. Pulse is 78 and sinus on telemetry. Mildly hypothermic at 35.7 after laying on the ground outside for a while. Respirations are 20 and she is 99% on room air. Other than a large scalp hematoma nothing on physical exam. She is alert and oriented. Cervical spine CT is clear to fracture. She has quite a bit of multi-level facet degeneration with ankylosis of the right C3-C4 facet. She has severe facet degeneration at other levels. She has air-fluid levels in the right maxillary and bilateral sphenoid sinuses. Coarse reticular appearing opacities in the lung apices suggestive of chronic parenchymal scarring than acute infiltrate. CT of the head has no intraparenchymal hemorrhage, no evidence of mass, midline shift, or CT findings of infarction. She has a soft tissue hematoma over the left frontal region. She is mildly hyponatremic. This is a chronic condition for her. BUN is 28 creatinine is 1.3. Random glucose 123. Troponin less than 0.04. Hemoglobin is 11.2 and white cell count is 8.7. In reviewing centricity records from her primary care provider, Dr. Cisse. Her blood pressure has been stable. Her pulse has been in the 70s-90s. No history of bradycardia. Does have . We will now place her in observation status for syncope. This is strongly suspicious of arrhythmia vs. . History - Past Medical History Cardiovascular: reports: Hypertension (Checks her blood pressure at home regularly. Blood pressure in PCP office has been 142-162 systolic/78-92 diastolic.), High cholesterol (With severe reactions to statins and niacin. 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 Aortic stenosis. But with Dr. Cisse, she has Mitral stenosis and seen by Dr. Simon at [facility] 2010.Dr. Chahal saw her for preop clearance 05/10/11 and she has , mild then. ECHO 2004 w nml LV size, LVEF 60-65%, Stage 1 diastolic dysfuntion, mild w peak 2.3 m/s, gradient of 9 mmHg. ECHO 2008 not available, repeat at [facility] 2010. ). 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 TSH >12), Other (Impaired fasting glucose ) GI: reports: Chronic constipation JURY CONSULTANT: reports: Endometriosis (When she was premenopausal), Other () : reports: Other (CKD with GFR 49) HEENT: reports: Macular degeneration Psych: reports: Anxiety Musculoskeletal: reports: Osteoarthritis, Osteopenia Derm: reports: Eczema (Seen by dermatology in [place]. 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 Duradn) Ortho: reports: Other (Left foot bunionectomy) HEENT: reports: Cataracts, Tonsil/Adenoidectomy - Family & Social History Family History Comment/Other: Mother at age 70 of a stroke. Father at age 68 of alcoholism and he was a smoker. No siblings. 3 children : 1 daughter just of metastatic adeno ca of unknown primary in [place] on 10/17/18, 1 son has substance abuse problems and lives in [place], 1 son lives in [place], [place]. He is healthy w no issues. Living arrangement: At home Living Situation: Alone Social History Notes: She is a that lives alone. 22 years ago. She is a former smoker. 1 ppd for 12 years. She is quit at the age of 31. She has maybe 7 or 8 drinks a year. She is a retired pc network technician. She is very active in her [employer]. Has a strong mariposa. She loves her friends. They are her "family" while she lives here. When she was still such a small child, her mother was declared unfit to take care of her and she lived with her father. At the age of 7, he went to go served in World War II. She was sent to go live with her grandmother. At the age of 11 was helping her grandmother run a [employer] in [place]. When she was 20, she was old enough to leave home and went to go live with her mother in [facility]. She had been remarried to a [place] man. She had have siblings with them. It was a wonderful home life for the short time she had with them. She then met her , and they lived in [facility]. She lived in [place] until he . She came to live here in 1970 or so when she came to be near her son who was living in [facility]. And then he went to go live in [place]. She has no intention of moving. She lives living here, loves her [employer], loves her friends. - Substance History Use: Uses substance without health or social issues: NONE Abuse: Recurrent use of substance despite neg consequences: NONE Dependence: Experiences withdrawal or developed tolerances: NONE - POLST Patient has POLST: No POLST Status: DNR Meds/Allgy - Home Medications Home Medications: Ambulatory Orders Medication Instructions Recorded Confirmed Lisinopril 10 mg PO DAILY 03/30/17 11/22/18 Bilberry DAILY 11/22/18 Multivit-Min/Iron Fum/Folic AC 1 tab PO DAILY 11/22/18 11/22/18 [Wnfsl-Fphlxbb-Xndsdijm Tablet] Ubidecarenone [Co Q10] 200 mg PO DAILY 11/22/18 11/22/18 - Allergies Allergies/Adverse Reactions: Allergies Allergy/AdvReac Type Severity Reaction Status Date / Time aspirin Allergy Unknown Verified 02/22/18 13:33 atenolol Allergy Unknown Verified 02/22/18 13:33 cetirizine Allergy Unknown Verified 02/22/18 13:33 diphenhydramine Allergy Unknown Verified 02/22/18 13:33 [From Benadryl] egg Allergy Unknown Verified 02/22/18 13:33 ginkgo biloba Allergy Unknown Verified 02/22/18 13:33 hydrochlorothiazide Allergy Unknown Verified 02/22/18 13:33 levothyroxine sodium Allergy Unknown Verified 02/22/18 13:33 [From Levothroid] losartan Allergy Unknown Verified 02/22/18 13:33 niacin Allergy Unknown Verified 02/22/18 13:33 Penicillins Allergy Unknown Verified 02/22/18 13:33 Npgxfqz-Pnj-Cxw Reductase Allergy Unknown Verified 02/22/18 13:33 Inhibitor ciprofloxacin [From Cipro] AdvReac Unknown Verified 02/22/18 13:33 spider bites AdvReac Unknown Uncoded 11/22/18 11:06 Review of Systems - Constitutional Constitutional: denies: Fatigue, Fever, Chills, Malaise, Weakness, Poor appetite - Eyes Eyes: reports: Field loss, Vision loss. denies: Pain, Irritation, Amaurosis, Blurred vision, Spots in vision - Ears, Nose & Throat Ears, Nose & Throat: reports: Hearing loss. denies: Ear pain, Hearing aids, Tinnitus, Vertigo, Nasal pain, Nasal discharge, Nasal obstruction, Nasal congestion, Postnasal drainage - Cardiovascular Cariovascular: reports: Syncope, Other (She used to walk close to 3 miles a day in her 70s. At the age of 82 she cut it back to about 1.2 or 1.4 miles a day. She did it because of her knees. Not because of chest pain, palpitations or shortness of breath. She also was getting a little bit leery of walking by herself during the day. She lives in a neighborhood that if she fell down, she could lay in the street for hours until people came home from work and they would never find her.). denies: Irregular heart rate, Palpitations, Chest pain, Edema, Lightheadedness, Exertional dyspnea, Decr. exercise tolerance - Respiratory Respiratory: denies: Cough, Sputum production, Wheezing, Snoring - Gastrointestinal Gastrointestinal: reports: Constipation (But she had a bout of diarrhea that lasted a few weeks in December 2017. Unknown causes. Last colonoscopy was 2010.). denies: Abdominal pain, Abdominal distention, Change in bowel habits, Rectal bleeding, Nausea, Vomiting, Bile emesis, Poor appetite - Genitourinary Genitourinary: reports: Incontinence. denies: Dysuria, Frequency, Urgency, Hematuria, Flank pain, Nocturia, Urethral discharge - Musculoskeletal Musculoskeletal: reports: Stiffness, Joint pain (In her knees. That is the one thing that really limits her mobility. That is been chronic for the last 3 or 4 years getting worse.), Other (Right now she aches all over from the fall this morning.). denies: Back pain, Muscle aches, Muscle weakness, Gout, Joint swelling - Integumentary Integumentary: reports: Lesions (Mainly on her legs from eczema and psoriasis this. She is followed by dermatology.) - Neurological Neurological: reports: Headache (Right now after her fall). denies: General weakness, Focal weakness, Memory problems, Pre-existing deficit, Seizures, Incoordination - Psychiatric Psychiatric: reports: Anxiety. denies: Depression, Suicidal, Delusions, Hallucinations, Homicidal - Endocrine Endocrine: denies: Polyuria, Polydypsia, Polyphagia - Hematologic/Lymphatic Hematologic/Lymphatic: reports: Anemia (Chronic. Unchanged as far she knows.). denies: Bruising, Petechiae Prior Level of Functionality: Completely independent, lives alone. Drives, cleans her house, pays her own b ills. Still goes to [employer]. Is active in her community. Exam - Vital Signs Reviewed Vital Signs: Yes Vital Signs: Vital Signs x48h Temp Pulse Resp BP Pulse Ox 11/22/18 11:02 78 16 151/68 H 99 11/22/18 10:04 35.7 C L 78 20 163/71 H 99 - Physical Exam General Appearance: positive: No acute distress, Alert, Other (Delightful elderly woman who is oriented, lucid historian, has a bagel goose egg over her left eyebrow and into her left jewish that is giving her a headache.) Eyes Bilateral: positive: PERRL, EOMI ENT: positive: Pharynx nml, Other (Teeth are crooked, causing jaw to protrude forward. Large hematoma above her left eye extending into her left jewish and scalp.) Neck: positive: No JVD, Stiff neck (From the fall only. It just started this morning.). negative: Carotid bruit Respiratory: positive: Chest non-tender, Other (She has slight kyphosis of her spine). negative: Wheezes, Rales, Rhonchi Cardiovascular: positive: Regular rate & rhythm, Systolic murmur (Grade 3/6. S tarts at the left lower sternal border. I contracted all the way into the right upper sternal border worse loudest in does radiate into her carotids.). negative: Gallop/S4, Friction rub Peripheral Pulses: positive: 1+ Abdomen: positive: Non-tender, No organomegaly, Nml bowel sounds, No distention Skin: positive: Warm, Dry, Pallor Extremities: positive: No pedal edema, Other (Osteoarthritic changes of the DIP and PIP joints. In her hands. Knee has crepitance, slight warmth and effusion both knees.) Neurologic/Psychiatric: positive: Oriented x3, CN's nml (2-12), Motor nml Conclusion/Plan - Problem List (1) Syncope Conclusion/Plan: In a patient who has bradycardia at the scene. This leads me to suspect possible bradycardia arrhythmia or hypothermic response to laying on the ground for an unknown length of time.. She also has known aortic stenosis. I will have to track down her 2011 echocardiogram since it is not in the EMR. The EMR only goes back to 2012. Plan: Telemetry for 24 hours Another set of troponins Echocardiogram tomorrow Get old echocardiogram from 2010 Qualifiers: Syncope type: unspecified Qualified Code(s): R55 - Syncope and collapse (2) Anemia Conclusion/Plan: Chronic. Hemoglobin lingers around 11. The most she is been is 12.1. This is been for a few years. No anemia panel in EMR that I can see. Plan: Will workup. May be related to her hypothyroidism.I would anticipate her to be macrocytic. But she is normocytic. Qualifiers: Anemia type: unspecified type Qualified Code(s): D64.9 - Anemia, unspecified (3) Hyponatremia Conclusion/Plan: Chronic. Ongoing all the way back to her family practice notes in [place] in the and into the 1999s. She is gone as low as 128. Again, no clear etiology. May be related to untreated hypothyroidism. She is not on an SSRI. (4) Chronic kidney disease (CKD), stage III (moderate) Conclusion/Plan: GFR in March 2018 was 47. Today it is 39. This may be reflection of dehydration or prerenal azotemia. Especially in view of her history of aortic stenosis. We will hydrate gently, give only 1 L, and recheck to see where she is. (5) Hypothyroidism Conclusion/Plan: She has been consistent and her desires not to treat this. She has tried many thyroid medications in the past and all of them have not sit well with her. She seemed to be very sensitive to medicines. Last TSH was 8.82 in March 2018. Plan: Recheck today Qualifiers: Hypothyroidism type: unspecified Qualified Code(s): E03.9 - Hypothyroidism, unspecified (6) Do not resuscitate discussion Conclusion/Plan: PLEASE SEE ADVANCED CARE PLAN NOTE UNDER SEPARATE DICTATION. - Lab Results Lab results reviewed: Yes Fish Bones: 11/22/18 10:30 11/22/18 10:30 - Diagnostic Imaging Results Diagnostic Imaging Results Comments: CT CERVICAL SPINE WITHOUT CONTRAST DATE: 11/22/2018 10:51 AM. HISTORY: Ground-level fall with head injury. COMPARISONS: None. TECHNIQUE: Thin-section axial images were acquired of the cervical spine without contrast. Post-processing: Coronal and sagittal reformats. Other: None. In accordance with CT protocol optimization, one or more of the following dose reduction techniques were utilized for this exam: automated exposure control, adjustment of mA and/or KV based on patient size, or use of iterative reconstructive technique. FINDINGS: Alignment: No significant scoliosis or spondylolisthesis. Bones: No acute fracture. Interspace Levels/Facets: Disk heights are relatively well preserved throughout the cervical spine. However, there is multilevel facet degeneration with ankylosis of the right C3-C4 facet and partial ankylosis of the left C3-C4 facet. Severe right-sided facet degeneration present at C4-C5, C5-C6, and C6-C7. Severe left facet degeneration present at C2-C3 and C5-C6. Musculature: No atrophy. Other: No edema in the prevertebral space. There are air-fluid levels in the right maxillary and bilateral sphenoid sinuses, as described on head CT. There are coarse reticular-appearing opacities in the lung apices, suggestive of chronic parenchymal scarring rather than acute infiltrate. IMPRESSION: 1. No acute fracture or malalignment of the cervical spine. 2. Multilevel facet degeneration, as described above. CT HEAD EXAM DATE: 11/22/2018 10:51 AM. CLINICAL HISTORY: Fall, loss of consciousness, left jewish hematoma. COMPARISON: None. TECHNIQUE: Multiaxial CT images were obtained from the foramen magnum to the vertex. Reformats: Sagittal and coronal. IV contrast: None. In accordance with CT protocol optimization, one or more of the following dose reduction techniques were utilized for this exam: automated exposure control, adjustment of mA and/or KV based on patient size, or use of iterative reconstructive technique. FINDINGS: Parenchyma: No intraparenchymal hemorrhage. No evidence of mass, midline shift, or CT findings of infarction. Krause-white differentiation is distinct. Extraaxial Spaces: Mild diffuse prominence, compatible with central volume loss. No subdural or epidural collections identified. Ventricles: Normal in size and position. Basal cisterns are patent. Sinuses and Orbits: There is an air-fluid level and debris in the right maxillary sinus. Air-fluid levels also demonstrated in bilateral sphenoid sinuses. Bilateral mastoid air cells are clear. Orbits are unremarkable. Bones: No calvarial fracture demonstrated. Other: There is soft tissue hematoma over the left frontal region. IMPRESSION: 1. Soft tissue hematoma over the left frontal region. 2. No acute intracranial abnormality. 3. Air-fluid levels in the right maxillary sinus and bilateral sphenoid sinuses, possibly representing acute sinusitis. CHEST X RAY CLINICAL HISTORY: Palpitations, sob. COMPARISON: 07/15/2009. TECHNIQUE: 2 views. FINDINGS: Lungs/Pleura: Bilateral interstitial abnormality suggesting chronic lung disease. This is overall similar to prior. No convincing focal pulmonary opacity. There is mitral annular calcification. No convincing pleural effusion or pneumothorax. Mediastinum: Heart size is normal. Mildly tortuous aorta. Other: None. IMPRESSION: No convincing acute cardiopulmonary abnormality. Bilateral interstitial abnormality suggesting chronic lung disease. Mitral annular calcification. - EKG Results EKG Interpreted Independently: No EKG Comparison: Unchanged from prior EKG EKG Findings: NSR with slight LAD. Slight LVH by voltage. Core Measures - Anticipated LOS I expect patient to be DC'd or transferred within 96 hours.: Yes - DVT/VTE - Prophylaxis VTE/DVT Device ordered at admit?: Yes
--- NOTE | 2018-11-22 15:07 | ADVANCE CARE PLANNING NOTE ---
Advance Care Planning - Date/Time Date: 11/22/18 Time: 14:58 - Purpose of encounter Text: To establish what her wishes are in context of the fact that she has lost consciousness briefly, and what her wishes be if someone had to speak for her. - Parties in attendance Parties in attendance: Hospitalist AND patient - Decisional capacity Decisional capacity of: Patient is intact. She is alert, oriented, still independent and lives alone. Pays her own bills. - Subjective/Patient's story Subjective/Patient's story: She was born in [place]. Unfortunately her mother was deemed unfit and she ended up living with her dad and raised by her dad. She left him tremendously. He was a good father. In World War II he had to leave to go serve and he sent her to go live with his mother. She said that she had to grow up really quickly. During the war things were hard. Her grandmother ran a [employer] and at the age of 10 or 11 was already acting independently helping her grandmother run the [employer]. Her father did come back from the war but a change man. Had problems with alcoholism but he was still a good man. She reestablished a relationship with her mother. Her mother had remarried by then and she finds it funny that her mother a Palestinian gentleman, and 1 of her grandmothers a Palestinian gentleman. She loved their culture, other food, their warmth. She went to go live in [facility] with her mom. Did that for a few years. 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 She met her . It was a good marriage. She says that of 3 generations of women she is the only one that stayed with her until he . He ended up dying of heart issues when they were living in [facility]. She came to live on [facility] to be close to her son. One daughter was living in [place] and she did not want to live in [place] anymore. One son has substance abuse issues and lives in [place] and she really tries to not have anything to do with him because of the emotional drain. [place] the son that lives in [place]. She laughs and says that he moved to [facility] a few years ago. But she is not going to go there. The weather is too hot, you have to live in air conditioning, she would go crazy. And she absolutely loves her friends here. They are her sisters, her family. She loves her jehovah's witness. Has a strong mariposa. She used to be seen by family practice in [place]. And when her mobility got less and less moved her care to Dr. Mac Cisse in [place]. She regards herself as a healthy lady. She stoutly maintains that she may be a little slow, but can still get everything done she needs to. She goes to jehovah's witness every Friday with her friends. Goes out with her friends. Maintains her own household. She says that she could probably sell her house for $200,000 if she needed to. She still pays her own bills. Speaks to her son on a frequent and regular basis. The only thing that is been slowing her down is her knees because they ache so much. The cold really hurts as well. She hates taking medications. She has lots of reactions to them. So does not want to take thyroid medicine or cholesterol medicine. She says she can barely tolerate her lisinopril at times. She had no recent change in her health status. [place] completely normal when she got up. Got dressed. Got ready for jehovah's witness. Next thing she knows she is waking up on the porch. She does not know she slipped and fell but has no recollection. She just was standing there and the next moment waking up on the ground. Although she has advanced directives, and a "green form" that she is filled out for Dr. Cisse, she has not turned it in. She does not want to be a burden to anybody. We spent quite a bit of time discussing different scenarios. In essence she was down to being dependent on someone else. If she is dependent on anybody to bathe her, feed her, bring her her clothes, and in essence "just take care of me" she does not want to live. While she wants to be treated for reversible treatable illnesses, she does not want to be treated if she is in a state where she is disabled. The example we discussed was that of a stroke, or massive heart attack that left her disabled and mainly sedentary and in bed. If she were that disabled, even if she was awake and alert, she wants us to let her go if she gets sick. She does not want treatment for UTI or pneumonia. As long as she can maintain her independence, she wants us to take care of her. I did ask her that if she became disabled, and needed temporary placement before she what would she want. She says it is okay to put her at [facility]. She feels that if she sold her house, the assets would allow her to have some roof overhead had, and temporary care until she with comfort palliative care. By that time, if she is living at [facility], she does not want treatment or hospitalization. - Objective/Medical story Objective/Medical Story: She is a very healthy elderly woman who still lives alone in her own home. She has known aortic stenosis. She has had an echocardiogram in 2004 in 2008 and most recently 2010 at [facility]. She has been seen by Dr. Aracely Dick at [facility] cardiology. She was seen in preoperative evaluation in 2010 before an umbilical hernia repair and cleared for surgery because of negative cardiovascular complaints. She was seen in the emergency room for syncope March 2017 where troponins were negative. She was sitting in jehovah's witness when she had the near syncope. She attributed it to not eating and being stressed out with family situation. She was sent home. Troponins were negative then. She was by PCP 2 weeks later for fu of near syncope with no changes made to meds. She is independent, got up this morning to go to jehovah's witness. Had breakfast and was dressed and ready to go. She walked out her front door. The next thing she knows she is waking up on a sidewalk in front of her house. She apparently passed out. She does not know how long she was out but it was only for a few minutes. She got back up and into her house to call her friends that she was not coming to jehovah's witness. They called 911. She denies any antecedent symptoms of dizziness, nausea, diaphoresis. No chest pain, no palpitations. She really had no warning. She really does not think she tripped. Upon regaining consciousness there is no confusion. She just has a pretty bad headache. She was evaluated by Dr. Arredondo and blood pressure is 163/71. Pulse is 78 and sinus on telemetry. Mildly hypothermic at 35.7 after laying on the ground outside for a while. Respirations are 20 and she is 99% on room air. Other than a large scalp hematoma nothing on physical exam. She is alert and oriented. Cervical spine CT is clear to fracture. She has quite a bit of multi-level facet degeneration with ankylosis of the right C3-C4 facet. She has severe facet degeneration at other levels. She has air-fluid levels in the right maxillary and bilateral sphenoid sinuses. Coarse reticular appearing opacities in the lung apices suggestive of chronic parenchymal scarring than acute infiltrate. CT of the head has no intraparenchymal hemorrhage, no evidence of mass, midline shift, or CT findings of infarction. She has a soft tissue hematoma over the left frontal region. She is mildly hyponatremic. This is a chronic condition for her. BUN is 28 creatinine is 1.3. Random glucose 123. Troponin less than 0.04. Hemoglobin is 11.2 and white cell count is 8.7. In reviewing centricity records from her primary care provider, Dr. Cisse. Her blood pressure has been stable. Her pulse has been in the 70s-90s. No history of bradycardia. Does have . - Goals of Care Goals of care determinations: To remain as independent as long as possible and not be a burden to her son. Quality [place] jehovah's witness/mariposa. [place]. She wants to remain near them until the end of her days. She wants us to include them when it comes time to give her comfort in her final moments. To remain in her house at all possible. If she has to be placed, sell her house and assets to place her temporarily a [facility]. If she has valvular heart disease, and it is treatable, she is willing to undergo therapy. - Plan Plan: Echocardiogram Cardiology evaluation Have her fill out the POLST form, and bring in copies for Dr. Cisse , her son, as well as the hospital. She has designated her son as POA. Sit down and have a conversation with her friends and her son about what she considers important, to guide them in their decisions when the time comes to help her. I warned her that she may be unconscious toward the end of her life, and she would want to have given her friends and family as much information as possible so they can make the right decisions for her. - Code Status Code Status: Do Not Attempt Resuscitation - Time Spent on Advance Care Planning Time spent on advance care plannin minutes
[2018-11-22] MEDS: ACETAMINOPHEN 325 MG TABLET PO PRN (16:01)
[2018-11-22] MEDS: SODIUM CHLORIDE FLUSH 0.9% 10 ML SYRINGE IVP SCH (17:25)
[2018-11-23] MEDS: SODIUM CHLORIDE FLUSH 0.9% 10 ML SYRINGE IVP SCH ×2 (01:02→08:24)
[2018-11-23 05:12] LABS: MEAN RETIC VALUE 110.8; RED BLOOD COUNT 3.85 10^6/uL (4.20-5.40)
[2018-11-23 05:32] LABS: % IRON SATURATION 19 % (20-50); IRON 58 ug/dL (28-170); TOTAL IRON BINDING CAPACITY 302 ug/dL (250-450); TRANSFERRIN 216 mg/dL (192-382)
[2018-11-23 05:44] LABS: THYROID STIMULATING HORMONE 5.25 uIU/mL (0.34-5.60)
[2018-11-23 05:49] LABS: FERRITIN 64.2 ng/mL (11.0-306.8)
[2018-11-23] MEDS: ACETAMINOPHEN 325 MG TABLET PO PRN (07:38)
[2018-11-23] MEDS ORDERED: MULTIVITAMIN TABLET PO SCH (08:00)
--- NOTE | 2018-11-23 08:17 | Discharge Plan ---
Discharge Plan Disposition: 01 Home, Self Care Diet: Regular Activity Restrictions: Activity as Tolerated Shower Restrictions: No Driving Restrictions: Yes (no driving) Additional Instructions or Follow Up instructions: You were placed in observation overnight in the hospital because you had fainted. In falling, hit your face and head on the ground and it really gave yourself quite a goose egg over your left restorationist. You can treat the pain and discomfort of that with Tylenol, and very low-dose Motrin. Taking too much Motrin can sometimes upset your stomach. So always take it on a stomach that has some food in it. The cause of your fainting is not from a heart attack or stroke. We evaluated you for that. CAT scan of your head was negative. X-rays of your neck show a lot of arthritis but no fractures. On the day of discharge you had a test called an echocardiogram. You do have aortic stenosis and an echocardiogram is an ultrasound of your heart and valves to see if your aortic stenosis is worse. Aortic stenosis can cause fainting. The results of that test are pending. Please see your primary care provider, Dr. Mac Cisse, and follow-up in the next week. Dr. Cisse needs to review your echocardiogram to make sure you do not need to be referred to cardiology. While here your blood pressure was a little bit high. But it never got high enough to change her medicines. Let Dr. Cisse know that your blood pressure went from 152/65-177/83. No Smoking: If you smoke, Please STOP! Call for help. Follow-up with: Mac Cisse DO [Primary Care Provider] -
[2018-11-23] MEDS ORDERED: LISINOPRIL 5 MG TABLET PO SCH (09:00)
[2018-11-23] MEDS ORDERED: POLYETHYLENE GLYCOL 3350 17 GM PACKET PO SCH (09:00)
[2018-11-23 13:54] VITALS: BP 144/58
--- NOTE | 2018-11-25 15:16 | DISCHARGE SUMMARY ---
Physician: Jazmyn Masterson MD DATE OF ADMISSION: 11/22/2018 DATE OF DISCHARGE: 11/23/2018 DISCHARGE DIAGNOSES 1. Syncope. 2. Moderate aortic stenosis. 3. Chronic anemia. 4. Chronic hyponatremia. 5. Chronic kidney disease stage 3. 6. Hypothyroidism. DISCHARGE MEDICATIONS 1. Krill [place]-3 capsule daily. 2. Lisinopril 10 mg daily. 3. A multivitamin daily. 4. Coenzyme Q10 daily. PRINCIPAL PROCEDURES 1. Telemetry for 24 hours without any arrhythmia. 2. Echocardiogram. Final report was pending at discharge. Moderate concentric left ventricular hypertrophy with normal systolic function of 65%. Diastolic dysfunction and left atrial dilation are present. Heavy mitral annular calcification without definite mitral stenosis. The mean mitral gradient is elevated at 9 mmHg. The valve area by pressure halftime is normal at 2.4 cm2. Mild mitral regurgitation may be underestimated due to shadowing. She also has borderline pulmonary hypertension at 36 mmHg. The right ventricle size is normal, as is function. Moderate aortic stenosis, mean gradient 30 mmHg and mild aortic regurgitation. 3. Anemia panel. Iron was 58 with normal being 28-170. TIBC 302, percent saturation 19 and low, transferrin 216. Ferritin 64. LDH 138. TSH 5.25. Vitamin B12 at 685. Retic count 1.15, absolute retic count 0.044. 4. Serial troponins negative. HOSPITAL COURSE: She is an 88-year-old lady who has had syncope twice before. Each time associated with going to cheondoism. She has been seen in our ER for this. She does have a history of mild aortic stenosis on previous echocardiograms. With this time, she had gotten up, eaten breakfast. Had walked out the front door to her front porch to await her friends to pick her up. The next thing she knows, she is waking up on the porch floor, having had an episode of syncope where there was no warning, no prodrome. She insists that maybe she slipped on the porch, but does not really remember slipping nor falling. One minute she standing, the next minute she is waking up from being unconscious. She managed to get herself into the house, told her friends from cheondoism not to pick her up. They called 911, and she was brought to the hospital. During her stay, she had mild hypertension, no arrhythmias on telemetry. On examination, she had a huge hematoma over her left lateral eyebrow and into her caodaism. Results were a headache and some neck stiffness. Radiology films including cervical spine CT and head CT cleared her from fracture or subdural or any acute intracranial event. Serial troponins were negative. She was kept on telemetry, and there were no arrhythmias. Since syncope is a presentation of aortic stenosis, a repeat echo was done and showed the above. Also notable is chronic hypothyroidism and chronic hyponatremia. This patient does not like the idea of taking medicines and in the past feels that she has reacted to all thyroid medicine. I have seen her TSH as high as 12 in reviewing electronic medical record, but with this admission it was 5.25. She also has chronic anemia between 11 and 12 grams of hemoglobin. Anemia panel are as above. With no true iron deficiency, B12 deficiency, or severe hypothyroidism, she may have anemia of chronic disease. Parameters should be watched to make sure she does not develop early myelodysplastic syndrome. Her chronic hyponatremia remained unchanged at 127. Chronic kidney disease remained unchanged at 28 and 1.3. She was discharged in stable condition. Asked to take Tylenol [id number] for her headache and pain. PHYSICAL EXAMINATION VITAL SIGNS: At discharge, temperature is 36.5, heart rate 69, blood pressure 144/58, respirations 18, 99% on room air. GENERAL: She is an absolutely delightful conversationalist. NECK: Supple. LUNGS: Clear to auscultation and percussion. CARDIAC: PMI is normally placed and she has a regular rate and rhythm. She does have the systolic ejection murmur in the right upper sternal border radiating to the carotids with her mitral stenosis murmur that is not as audible. ABDOMEN: Soft, nontender, no organomegaly. EXTREMITIES: No edema. NEUROLOGIC: She is able to come from a supine position to a sitting and standing position without ataxia. She walks with a slight shuffling gait and is kyphotic from osteoporosis, but no labored respiration or discomfort. PLAN: I have asked her to follow up with her primary care provider, Dr. Mac Cisse, for referral to Cardiology. If she is having syncope from aortic stenosis, her echo is not reflecting the severity of her illness, and she may be a candidate for an interventional study. I have asked her to continue her multivitamins for her chronic anemia. TD: 11/25/2018 12:10 PHIL
== END 2018-11-23 14:10 | disposition home or self-care (01) ==
LOC: EDUNIT# → ED 10:03 → OBS 12:52
PROVIDERS: ADMIT Specialist; ATTEND Specialist
DX: R55 Syncope and collapse (principal); I35.0 Nonrheumatic aortic (valve) stenosis; D64.89 Other specified anemias; E87.1 Hypo-osmolality and hyponatremia; I12.9 Hypertensive chronic kidney disease with stage 1 through stage 4 chronic kidney disease, or unspecified chronic kidney disease; N18.3 Chronic kidney disease, stage 3 (moderate); E03.9 Hypothyroidism, unspecified; S00.12XA Contusion of left eyelid and periocular area, initial encounter; W01.0XXA Fall on same level from slipping, tripping and stumbling without subsequent striking against object, initial encounter; R00.1 Bradycardia, unspecified; Y92.008 Other place in unspecified non-institutional (private) residence as the place of occurrence of the external cause; T68.XXXA Hypothermia, initial encounter; X31.XXXA Exposure to excessive natural cold, initial encounter; M47.812 Spondylosis without myelopathy or radiculopathy, cervical region; K59.09 Other constipation; R32 Unspecified urinary incontinence; H35.30 Unspecified macular degeneration; M85.80 Other specified disorders of bone density and structure, unspecified site; H91.90 Unspecified hearing loss, unspecified ear; I42.9 Cardiomyopathy, unspecified; Z91.81 History of falling; Z66 Do not resuscitate; Z87.891 Personal history of nicotine dependence
CPT/HCPCS: 12011; 36415; 70450; 72125; 80048; 82607; 82728; 83540; 83615; 84443; 84466; 84484; 85025; 85044; 93005; 93306; 96361; 96365; 99284; A9270; G0378; J0131; 99285

== ENCOUNTER 2019-05-10 09:11 | Outpatient (CLI) | payer MEDICARE, BC ==
[2019-05-10 12:29] LABS: BASOPHILS # (AUTO) 0.1 10^3/uL (0.0-0.1); BASOPHILS % (AUTO) 1.2 %; CALCIUM 9.3 mg/dL (8.5-10.3); CREATININE 1.2 mg/dL (0.4-1.0); EOSINOPHILS # (AUTO) 0.2 10^3/uL (0.0-0.7); EOSINOPHILS % (AUTO) 3.5 %; HGB - HEMOGLOBIN 11.2 g/dL (12.0-16.0); LYMPHOCYTES # (AUTO) 1.6 10^3/uL (1.5-3.5); LYMPHOCYTES % (AUTO) 24.7 %; MEAN CORPUSCULAR HEMOGLOBIN 28.6 pg (27.0-31.0); MEAN CORPUSCULAR HGB CONC 32.7 g/dL (32.0-36.0); MEAN CORPUSCULAR VOLUME 87.5 fL (81.0-99.0); MONOCYTES # (AUTO) 0.6 10^3/uL (0.0-1.0); MONOCYTES % (AUTO) 8.5 %; NEUTROPHILS # (AUTO) 4.1 10^3/uL (1.5-6.6); NEUTROPHILS % (AUTO) 61.8 %; PLT - PLATELET COUNT 361 10^3/uL (130-450); RED BLOOD COUNT 3.92 10^6/uL (4.20-5.40); RED CELL DISTRIBUTION WIDTH 13.5 % (12.0-15.0); WHITE BLOOD COUNT 6.6 x10^3/uL (4.8-10.8)
[2019-05-10 12:40] LABS: HB2 TOTAL 12.2 g/dL; HEMOGLOBIN A1C 0.44 g/dL; HEMOGLOBIN A1C % 5.5 % (4.6-6.2)
== END 2019-05-10 09:12 | disposition home or self-care (01) ==
LOC: LAB.WCP 09:11
PROVIDERS: ATTEND Family Medicine
DX: I10 Essential (primary) hypertension (principal); R73.01 Impaired fasting glucose
CPT/HCPCS: 36415; 80048; 83036; 85025

== ENCOUNTER 2019-09-02 09:12 | Emergency (ER) | payer MEDICARE, BC ==
--- NOTE | 2019-09-02 09:50 | ED Physician Documentation ---
History of Present Illness - Stated complaint Stated Complaint: LT ARM PX - Chief complaint Chief Complaint: Cardiac - History obtained from History obtained from: Patient - History of Present Illness Timing: How many days ago (3) Pain level max: 4 Pain level now: 3 Improved by: rest Worsened by: movement - Additonal information Additional information: L arm pain. No known injury. States feels slightly short of breath. Review of Systems Constitutional: denies: Fever, Chills Nose: denies: Rhinorrhea / runny nose, Congestion Throat: denies: Sore throat Cardiac: denies: Chest pain / pressure, Palpitations Respiratory: reports: Dyspnea (states mild shortness of breath). denies: Cough GI: denies: Nausea, Vomiting Skin: denies: Rash Musculoskeletal: denies: Neck pain, Back pain Neurologic: denies: Headache PD PAST MEDICAL HISTORY - Past Medical History Cardiovascular: Hypertension, High cholesterol Respiratory: None Neuro: Other Endocrine/Autoimmune: HyPOthyroidism, Other GI: Chronic constipation FAMILY LITERACY COORDINATOR: Endometriosis, Other : Other HEENT: Macular degeneration Psych: Anxiety Musculoskeletal: Osteoarthritis, Osteopenia Derm: Eczema - Past Surgical History Past Surgical History: Yes General: Gastric surgery Ortho: Other HEENT: Tonsil/Adenoidectomy - Present Medications Home Medications: Ambulatory Orders Medication Instructions Recorded Confirmed Lisinopril 10 mg PO DAILY 03/30/17 09/02/19 Bilberry 1 tab PO DAILY 11/22/18 09/02/19 Multivit-Min/Iron Fum/Folic AC 1 tab PO DAILY 11/22/18 09/02/19 [[id number]-[id number]-[id number] Tablet] Ubidecarenone [Co Q10] 200 mg PO DAILY 11/22/18 09/02/19 Krill Oil/[place]-3/Dha/Epa [[place]-3 1 cap PO DAILY 11/23/18 09/02/19 Krill Oil Softgel] - Allergies Allergies/Adverse Reactions: Allergies Allergy/AdvReac Type Severity Reaction Status Date / Time aspirin Allergy Unknown Verified 09/02/19 09:17 atenolol Allergy Unknown Verified 09/02/19 09:17 cetirizine Allergy Unknown Verified 09/02/19 09:17 diphenhydramine Allergy Unknown Verified 09/02/19 09:17 [From Benadryl] egg Allergy Unknown Verified 09/02/19 09:17 ginkgo biloba Allergy Unknown Verified 09/02/19 09:17 hydrochlorothiazide Allergy Unknown Verified 09/02/19 09:17 levothyroxine sodium Allergy Unknown Verified 09/02/19 09:17 [From Levothroid] losartan Allergy Unknown Verified 09/02/19 09:17 niacin Allergy Unknown Verified 09/02/19 09:17 Penicillins Allergy Unknown Verified 09/02/19 09:17 Kwmzein-Kla-Mnf Reductase Allergy Unknown Verified 09/02/19 09:17 Inhibitor ciprofloxacin [From Cipro] AdvReac Unknown Verified 09/02/19 09:17 spider bites AdvReac Unknown Uncoded 09/02/19 09:17 - Social History Does the pt smoke?: No Smoking Status: Never smoker Does the pt drink ETOH?: Yes Does the pt have substance abuse?: No - Immunizations Immunizations are current?: Yes Immunizations: TDAP >10years/unknown - POLST Patient has POLST: No POLST Status: DNR PD ED PE NORMAL - Vitals Vital signs reviewed: Yes - General General: Alert and oriented X 3, No acute distress - HEENT HEENT: Moist mucous membranes - Neck Neck: Supple, no meningeal sign - Cardiac Cardiac: RRR, Other (4/6 murmur) - Respiratory Respiratory: No respiratory distress, Clear bilaterally - Abdomen Abdomen: Soft, Non tender, Non distended - Derm Derm: Warm and dry - Extremities Extremities: No edema, Other (mild L arm discomfort with ROM at the shoulder. NVI. no swelling.) - Neuro Neuro: Alert and oriented X 3 - Psych Psych: Normal mood, Normal affect Results - Vitals Vitals: Vital Signs - 24 hr 09/02/19 09/02/19 09/02/19 09:13 09:32 10:16 Temperature 36.6 C Heart Rate 95 86 79 Respiratory 15 18 23 Rate Blood Pressure 185/77 H 146/67 H 137/71 H O2 Saturation 96 94 93 09/02/19 09/02/19 11:33 12:02 Temperature 36.6 C Heart Rate 75 73 Respiratory 19 18 Rate Blood Pressure 161/71 H 161/71 H O2 Saturation 97 98 Oxygen O2 Source Room air - Labs Labs: Laboratory Tests 09/02/19 09/02/19 09/02/19 09:44 09:44 09:44 WBC 6.5 RBC 3.94 L Hgb 11.5 L Hct 34.3 L MCV 87.1 MCH 29.2 MCHC 33.5 RDW 13.3 Plt Count 321 MPV 8.5 Neut # (Auto) 4.5 Lymph # (Auto) 1.2 L Dodge # (Auto) 0.6 Eos # (Auto) 0.1 Baso # (Auto) 0.1 Absolute Nucleated RBC 0.00 Nucleated RBC % 0.0 Sodium 132 L Potassium 4.4 Chloride 99 L Carbon Dioxide 23 Anion Gap 10.0 BUN 21 H Creatinine 1.2 H Estimated GFR (MDRD) 42 L Glucose 106 H Calcium 9.4 Total Bilirubin 0.5 AST 19 ALT 10 Alkaline Phosphatase 50 Troponin I High Sens 9.2 Total Protein 7.6 Albumin 3.6 Globulin 4.0 Albumin/Globulin Ratio 0.9 L Lipase 41 - Rads (name of study) L shoulder xray Radiology: Prelim report reviewed, EMP read contemporaneously, See rad report (Mild degenerative changes at the left shoulder. ) cxr Radiology: Prelim report reviewed, EMP read contemporaneously, See rad report (Prominent interstitial markings, compatible with fibrosis. No discrete c onsolidations identified. ) PD MEDICAL DECISION MAKING - ED course Complexity details: reviewed results, re-evaluated patient, considered differential, d/w patient ED course: 89-year-old female presents to the emergency department with left arm pain. This appears to be musculoskeletal in nature. No evidence of cardiac etiology. We will treat symptomatically and have her follow-up with her doctor. No evidence of DVT or arterial occlusion. No swelling. No palpable cords. Patient counseled regarding signs and symptoms for which I believe and urgent re-evaluation would be necessary. Patient with good understanding of and agreement to plan and is comfortable going home at this time This document was made in part using voice recognition software. While efforts are made to proofread this document, sound alike and grammatical errors may occur. Departure - Departure Disposition: 01 Home, Self Care Clinical Impression: Arm pain Qualifiers: Laterality: left Qualified Code(s): M79.602 - Pain in left arm Condition: Good Instructions: ED Acute Pain [facility]O Follow-Up: Mac Cisse DO [Primary Care Provider] - Within 1 week Comments: The cause of your symptoms is unclear today. Return if you worsen. Follow-up with your doctor for further care. Discharge Date/Time: 09/02/19 12:04
[2019-09-02 09:52] LABS: BASOPHILS # (AUTO) 0.1 10^3/uL (0.0-0.1); BASOPHILS % (AUTO) 1.1 %; EOSINOPHILS # (AUTO) 0.1 10^3/uL (0.0-0.7); HGB - HEMOGLOBIN 11.5 g/dL (12.0-16.0); LYMPHOCYTES # (AUTO) 1.2 10^3/uL (1.5-3.5); LYMPHOCYTES % (AUTO) 18.8 %; MEAN CORPUSCULAR HEMOGLOBIN 29.2 pg (27.0-31.0); MEAN CORPUSCULAR HGB CONC 33.5 g/dL (32.0-36.0); MEAN CORPUSCULAR VOLUME 87.1 fL (81.0-99.0); MEAN PLATELET VOLUME 8.5 fL (7.9-10.8); MONOCYTES # (AUTO) 0.6 10^3/uL (0.0-1.0); MONOCYTES % (AUTO) 8.9 %; NEUTROPHILS # (AUTO) 4.5 10^3/uL (1.5-6.6); NEUTROPHILS % (AUTO) 68.7 %; PLT - PLATELET COUNT 321 10^3/uL (130-450); RED BLOOD COUNT 3.94 10^6/uL (4.20-5.40); RED CELL DISTRIBUTION WIDTH 13.3 % (12.0-15.0); WHITE BLOOD COUNT 6.5 x10^3/uL (4.8-10.8)
[2019-09-02 10:11] LABS: ALBUMIN 3.6 g/dL (3.2-5.5); ALBUMIN/GLOBULIN RATIO 0.9 (1.0-2.2); BILIRUBIN,TOTAL 0.5 mg/dL (0.2-1.0); CALCIUM 9.4 mg/dL (8.5-10.3); CREATININE 1.2 mg/dL (0.4-1.0); TOTAL PROTEIN 7.6 g/dL (6.7-8.2)
--- NOTE | 2019-09-02 10:37 | XRAY Report ---
Reason: L shoulder pain Procedure Date: 09/02/2019 Accession Number: [id number] / [id number] Procedure: XR - Shoulder 3 View LT CPT Code: FULL RESULT: EXAM: LEFT SHOULDER RADIOGRAPHY EXAM DATE: 09/02/2019 09:47 AM. CLINICAL HISTORY: Left shoulder pain. COMPARISON: CHEST 1 VIEW 09/02/2019 9:45 AM. TECHNIQUE: 3 views. FINDINGS: No fracture or subluxation detected. There is mild osteophytic spurring at the inferior level of the glenoid. Mild narrowing of the subacromial space. Acromioclavicular articulation space appears preserved. No focal lytic changes detected. Soft tissues: Moderately prominent interstitial markings in the left upper lung, similar to comparison chest x-ray. IMPRESSION: Mild degenerative changes at the left shoulder. RADIA
--- NOTE | 2019-09-02 10:53 | XRAY Report ---
Reason: cardiac Procedure Date: 09/02/2019 Accession Number: [id number] / [id number] Procedure: XR - Chest 1 View X-Ray CPT Code: 75965 FULL RESULT: EXAM: CHEST RADIOGRAPHY EXAM DATE: 09/02/2019 10:21 AM. CLINICAL HISTORY: Cardiac. Pain, shortness of breath. COMPARISON: CHEST 2 VIEW 12/28/2017 11:11 AM. TECHNIQUE: 1 view. FINDINGS: Lungs/Pleura: Shallow lung volumes, with moderately prominent interstitial markings suggesting fibrosis. This has progressed slightly versus comparison. No discrete consolidations identified.. Mediastinum: Heart size stable and within normal limits. Other: None. IMPRESSION: Prominent interstitial markings, compatible with fibrosis. No discrete consolidations identified. RADIA
[2019-09-02 11:34] VITALS: BP 161/71
== END 2019-09-02 12:04 | disposition home or self-care (01) ==
LOC: ED 09:12
DX: M79.602 Pain in left arm (principal); M19.012 Primary osteoarthritis, left shoulder; I10 Essential (primary) hypertension
CPT/HCPCS: 36415; 71045; 80053; 83690; 84484; 85025; 93005; 99282; 99284

== ENCOUNTER 2021-07-20 15:21 | Outpatient (CLI) | payer MEDICARE, BC ==
--- NOTE | 2021-07-20 17:29 | XRAY Report ---
PROCEDURE: Knee 3 View RT INDICATIONS: RIGHT KNEE PAIN S/P FALL TECHNIQUE: 3 views of the right knee(s) were acquired. COMPARISON: None. FINDINGS: Bones: No fractures or dislocations. No suspicious bony lesions. Severe narrowing of the lateral fe moral tibial and patellofemoral knee joints and tricompartmental periarticular osteophyte formation. Soft tissues: Small joint effusion. No suspicious soft tissue calcifications. IMPRESSION: Small knee joint effusion and tricompartmental knee joint degeneration, most notably inv olving the lateral patellofemoral and lateral femoral tibial joints. Reviewed by: CAIN Lainez on 07/20/2021 5:28 PM PDT Approved by: Holden Hoffman MD on 07/20/2021 5:28 PM PDT Station ID: [id number]
== END 2021-07-20 23:59 | disposition home or self-care (01) ==
LOC: DI.N 15:21
PROVIDERS: ATTEND Physician Assistant Medical
DX: M17.11 Unilateral primary osteoarthritis, right knee (principal); M25.461 Effusion, right knee

== ENCOUNTER 2022-03-22 12:20 | Emergency (ER) | payer MEDICARE, BC ==
--- NOTE | 2022-03-22 12:35 | ED Physician Documentation ---
PD HPI CHEST PAIN - Stated complaint Stated Complaint: back px - Chief complaint Chief Complaint: General - History obtained from History obtained from: Patient - History of Present Illness Timing - onset: How many hours ago (2) Timing - onset during: Rest (She was sitting in her kitchen at home when he started feeling somewhat lightheaded and pain in the left shoulder and back. No anterior chest pain. Denied headache. No syncope. Just "not feeling like myself". Lasted 10 minutes or so and feels normal now.) Timing - details: Abrupt onset, Now resolved (lasted 10-15 minutes.) Quality: Aching, Pain Location: Left shoulder/arm Radiation: Back Improved by: No: Rest Worsened by: No: Exertion, Inspiration Associated symptoms: No: Shortness of air, Nausea, Feeling faint / dizzy, Palpitations Similar symptoms before: Has not had sx before Review of Systems Constitutional: denies: Fever, Chills Nose: denies: Rhinorrhea / runny nose, Congestion Throat: denies: Sore throat Cardiac: reports: Chest pain / pressure. denies: Palpitations, Pedal edema, Calf pain Respiratory: denies: Dyspnea PD PAST MEDICAL HISTORY - Past Medical History Cardiovascular: Hypertension, High cholesterol Respiratory: None Neuro: Other Endocrine/Autoimmune: HyPOthyroidism, Other GI: Chronic constipation [employer]: Endometriosis, Other : Other HEENT: Macular degeneration Psych: Anxiety Musculoskeletal: Osteoarthritis, Osteopenia Derm: Eczema - Past Surgical History Past Surgical History: Yes General: Gastric surgery Ortho: Other HEENT: Tonsil/Adenoidectomy - Present Medications Home Medications: Ambulatory Orders Medication Instructions Recorded Confirmed Lisinopril 10 mg PO DAILY 03/30/17 03/22/22 - Allergies Allergies/Adverse Reactions: Allergies Allergy/AdvReac Type Severity Reaction Status Date / Time aspirin Allergy Unknown Verified 03/22/22 12:29 atenolol Allergy Unknown Verified 03/22/22 12:29 cetirizine Allergy Unknown Verified 03/22/22 12:29 diphenhydramine Allergy Unknown Verified 03/22/22 12:29 [From Benadryl] egg Allergy Unknown Verified 03/22/22 12:29 ginkgo biloba Allergy Unknown Verified 03/22/22 12:29 hydrochlorothiazide Allergy Unknown Verified 03/22/22 12:29 levothyroxine sodium Allergy Unknown Verified 03/22/22 12:29 [From Levothroid] losartan Allergy Unknown Verified 03/22/22 12:29 niacin Allergy Unknown Verified 03/22/22 12:29 Penicillins Allergy Unknown Verified 03/22/22 12:29 Yzsfenq-RMU-BfL Reductase Allergy Unknown Verified 03/22/22 12:29 Inhibitor [Kmbcqnw-Eym-Iah Reductase Inhibitor] ciprofloxacin [From Cipro] AdvReac Unknown Verified 03/22/22 12:29 spider bites AdvReac Unknown Uncoded 03/22/22 12:29 - Social History Does the pt smoke?: No Smoking Status: Never smoker Does the pt drink ETOH?: Yes Does the pt have substance abuse?: No - Immunizations Immunizations are current?: Yes Immunizations: TDAP >10years/unknown - POLST Patient has POLST: No POLST Status: DNR PD ED PE NORMAL - Vitals Vital signs reviewed: Yes - General General: Alert and oriented X 3, No acute distress, Well developed/nourished - HEENT HEENT: Pharynx benign - Neck Neck: Supple, no meningeal sign, No adenopathy - Cardiac Cardiac: RRR, No murmur - Respiratory Respiratory: Clear bilaterally - Abdomen Abdomen: Normal bowel sounds, Soft, Non tender, Non distended - Back Back: No CVA TTP - Derm Derm: Normal color, Warm and dry - Extremities Extremities: No tenderness to palpate, Normal ROM s pain, No edema, No calf tenderness / cord - Neuro Neuro: Alert and oriented X 3, No motor deficit, Normal speech Eye Opening: Spontaneous Motor: Obeys Commands Verbal: Oriented GCS Score: 15 - Psych Psych: Normal affect Results - Vitals Vitals: Vital Signs - 24 hr 03/22/22 03/22/22 12:30 14:32 Temperature 37.0 C 36.6 C Heart Rate 86 74 Respiratory 18 16 Rate Blood Pressure 179/95 H 140/84 H O2 Saturation 96 100 Oxygen O2 Source Room air - EKG (time done) 12:46 Rate: Rate (enter#) (82) Rhythm: NSR, Other (PVCs noted. No ischemic changes. ) [place]: Normal Intervals: Normal ID QRS: Normal Ischemia: Normal ST segments. No: ST elevation c/w ischemia, ST depression - Labs Labs: Laboratory Tests 03/22/22 03/22/22 03/22/22 13:28 13:28 13:28 WBC 7.2 RBC 4.32 Hgb 12.9 Hct 38.5 MCV 89.1 MCH 29.9 MCHC 33.5 RDW 13.2 Plt Count 281 MPV 9.6 Neut # (Auto) 4.7 Lymph # (Auto) 1.7 Patrick # (Auto) 0.6 Eos # (Auto) 0.1 Baso # (Auto) 0.1 Absolute Nucleated RBC 0.00 Nucleated RBC % 0.0 Sodium 134 L Potassium 4.4 Chloride 97 L Carbon Dioxide 25 Anion Gap 12.0 BUN 22 H Creatinine 1.3 H Estimated GFR (MDRD) 39 L Glucose 92 Calcium 9.4 Magnesium 2.1 Total Bilirubin 0.7 AST 19 ALT 10 Alkaline Phosphatase 59 Troponin I High Sens 12.1 Total Protein 7.6 Albumin 3.9 Globulin 3.7 Albumin/Globulin Ratio 1.1 Lipase 46 - Rads (name of study) chest xray Radiology: Prelim report reviewed (no acute process. ), See rad report PD MEDICAL DECISION MAKING - ED course Complexity details: reviewed results, considered differential, d/w patient Departure - Departure Disposition: 01 Home, Self Care Clinical Impression: Lightheadedness, Shoulder pain Condition: Stable Record reviewed to determine appropriate education?: Yes Follow-Up: Mac Cisse DO [Primary Care Provider] - Comments: Your EKG, vital signs, oxygenation, chest x-ray and blood test including a marker for heart injury call troponin are all normal. No signs of a more serious cause of your episode at this time. Regular activity food and fluids. Follow-up with your primary care or return to the ER if repeated episodes for consideration of a heart monitor that would wear for a week or so. If no further episodes, then no further work-up is necessarily needed. Recheck if other symptoms develop as well such as fevers cough nausea vomiting etc. Discharge Date/Time: 03/22/22 14:39
[2022-03-22] MEDS ORDERED: SODIUM CHLORIDE 0.9% 500 ML IV STA (13:08)
--- NOTE | 2022-03-22 13:31 | XRAY Report ---
PROCEDURE: Chest 1 View X-Ray INDICATIONS: Chest Pain TECHNIQUE: One view of the chest was acquired. COMPARISON: 09/02/2019 FINDINGS: Surgical changes and devices: None. Lungs and pleura: No pleural effusions or pneumothorax. There is no change in moderate diffuse chron ic appearing interstitial pulmonary opacity. There is superimposed mild patchy left mid and lower terri g opacity. Mediastinum: Mediastinal contours appear normal. Heart size is normal. Bones and chest wall: No suspicious bony lesions. Overlying soft tissues appear unremarkable. IMPRESSION: 1. Findings suggestive of moderate pulmonary fibrosis with superimposed left basilar and left perihil ar atelectasis versus pneumonia. Reviewed by: Robert Agosto MD on 03/22/2022 1:30 PM PDT Approved by: Robert Agosto MD on 03/22/2022 1:30 PM PDT Station ID: [id number]
[2022-03-22 13:42] LABS: BASOPHILS # (AUTO) 0.1 10^3/uL (0.0-0.1); EOSINOPHILS # (AUTO) 0.1 10^3/uL (0.0-0.7); EOSINOPHILS % (AUTO) 1.4 %; HCT - HEMATOCRIT 38.5 % (37.0-47.0); HGB - HEMOGLOBIN 12.9 g/dL (12.0-16.0); LYMPHOCYTES # (AUTO) 1.7 10^3/uL (1.5-3.5); LYMPHOCYTES % (AUTO) 23.8 %; MEAN CORPUSCULAR HEMOGLOBIN 29.9 pg (27.0-31.0); MEAN CORPUSCULAR HGB CONC 33.5 g/dL (32.0-36.0); MEAN CORPUSCULAR VOLUME 89.1 fL (81.0-99.0); MEAN PLATELET VOLUME 9.6 fL (7.9-10.8); MONOCYTES # (AUTO) 0.6 10^3/uL (0.0-1.0); MONOCYTES % (AUTO) 8.6 %; NEUTROPHILS # (AUTO) 4.7 10^3/uL (1.5-6.6); NEUTROPHILS % (AUTO) 65.1 %; PLT - PLATELET COUNT 281 10^3/uL (130-450); RED BLOOD COUNT 4.32 10^6/uL (4.20-5.40); RED CELL DISTRIBUTION WIDTH 13.2 % (12.0-15.0); WHITE BLOOD COUNT 7.2 x10^3/uL (4.8-10.8)
[2022-03-22 13:57] LABS: ALBUMIN 3.9 g/dL (3.2-5.5); ALBUMIN/GLOBULIN RATIO 1.1 (1.0-2.2); BILIRUBIN,TOTAL 0.7 mg/dL (0.2-1.0); CALCIUM 9.4 mg/dL (8.5-10.3); CREATININE 1.3 mg/dL (0.4-1.0); MAGNESIUM 2.1 mg/dL (1.7-2.8); POTASSIUM 4.4 mmol/L (3.5-5.0); TOTAL PROTEIN 7.6 g/dL (6.7-8.2)
[2022-03-22 14:37] VITALS: BP 140/84
== END 2022-03-22 14:39 | disposition home or self-care (01) ==
LOC: ED 12:20
DX: M25.512 Pain in left shoulder (principal); R42 Dizziness and giddiness; I10 Essential (primary) hypertension
CPT/HCPCS: 36415; 80053; 83690; 83735; 84484; 85025; 93005; 99284